=== PATIENT | female | born 1995 | race African-American/Black ===

== ENCOUNTER 2019-04-21 10:07 | Emergency (ER) | payer OTHER ==
[~2019-04-21] VITALS: Ht 165.1 cm; Wt 117.9 kg
[2019-04-21 10:18] VITALS: BP_SYST 134
--- NOTE | 2019-04-21 10:18 | NUR ---
Patient to ER bed 3 to gown for evaluation. Side rails up.
--- NOTE | 2019-04-21 10:28 | NUR ---
pt bib via BLS. Pt was as work this am when she stood up and felt 10/10 lower back pain. PT reports that she is currently on antibiotics x 3 days. Pt is afebrile.
--- NOTE | 2019-04-21 10:45 | NUR ---
ER at bedside examining patient.
[2019-04-21] MEDS ORDERED: ONDANSETRON 4 MG ODT TAB PO ONE (11:00)
[2019-04-21] MEDS ORDERED: KETOROLAC TROMETHAMINE 30 MG VIAL IM ONE (11:00)
--- NOTE | 2019-04-21 11:08 | NUR ---
Medicated the pt w/ Toradol and Zofran per MD order. Will reassess.
--- NOTE | 2019-04-21 11:20 | NUR ---
Patient transported to radiology via , accompanied by trader.
--- NOTE | 2019-04-21 11:34 | NUR ---
pt returned from CT scan
--- NOTE | 2019-04-21 12:00 | NUR ---
pt reports feeling better. Reports 4/10 abd pain
--- NOTE | 2019-04-21 13:40 | NUR ---
Atttempted to discharge patient, family/friends at bedside praying with patient will attempt again in a few minutes
[2019-04-21 13:51] VITALS: BP_SYST 122
--- NOTE | 2019-04-21 13:52 | NUR ---
Patient given written and verbal discharge instructions and verbalizes understanding. ER MD discussed with patient the results and treatment provided. Patient in stable condition. ID arm band removed. Rx of Motrin 800mg, Mineral Oil and Lactulose given. Patient educated on pain management and to follow up with PMD. Pain Scale 0/10. Opportunity for questions provided and answered. Medication side effect fact sheet provided.
== END 2019-04-21 13:51 | disposition home or self-care (01) ==
LOC: SED 10:07
DX: S39.012A Strain of muscle, fascia and tendon of lower back, initial encounter (principal); K59.00 Constipation, unspecified; X50.0XXA Overexertion from strenuous movement or load, initial encounter; Y93.89 Activity, other specified; Y92.89 Other specified places as the place of occurrence of the external cause; Y99.8 Other external cause status
CPT/HCPCS: 72131; 74176; 96372; 99284; J1885; Q0162